=== PATIENT | male | born 2000 | race Caucasian/White ===

== ENCOUNTER 2020-08-25 18:50 | Emergency (ER) | payer OTHER ==
[2020-08-25] MEDS ORDERED: METHYLPREDNISOLONE INJ 125 MG/2 ML SDV IV ONE (19:00)
[2020-08-25] MEDS ORDERED: FAMOTIDINE INJ/PF 20 MG/2 ML SDV IV ONE (19:00)
[2020-08-25] MEDS ORDERED: EPINEPHRINE INJ/PF 1 MG/1 ML AMPULE ONE (19:03)
[2020-08-25] MEDS ORDERED: NORMAL SALINE 1000 ML 1,000 ML IV ONE (19:05)
[2020-08-25] MEDS ORDERED: EPINEPHRINE INJ/PF 1 MG/1 ML AMPULE IM ONE (19:05)
--- NOTE | 2020-08-25 19:09 | ER Document Report ---
ED Medical Screen (RME) - General Chief Complaint: Allergic Reaction Stated Complaint: POSSIBLE ALLERGIC REACTION Time Seen by Provider: 08/25/20 18:58 Notes: HPI: 20-year-old male presenting for allergic reaction. Patient states he was bitten by 50-100 fire ants. Stepped in a nest. No prior history of allergy to fire ants. States this occurred approximately 1 hour ago. No shortness of breath at this time but patient states he did take 75 mg of Benadryl and has worsening swelling PHYSICAL EXAMINATION: Patient covered in hives head to toe. There is periorbital swelling and significant hives across the face. No definitive angioedema phonation is normal no stridor lungs are clear to auscultation without wheezing I have greeted and performed a rapid initial assessment of this patient. A comprehensive ED assessment and evaluation of the patient, analysis of test results and completion of medical decision making process will be conducted by an additional ED providers. - Related Data Allergies/Adverse Reactions: No Known Allergies Allergy (Verified 08/25/20 18:57)
--- NOTE | 2020-08-25 19:36 | ER Document Report ---
ED General - General Chief Complaint: Allergic Reaction Stated Complaint: POSSIBLE ALLERGIC REACTION Time Seen by Provider: 08/25/20 18:58 Notes: Patient is a 20-year-old white male with no significant past medical history presents the emergency department today with a chief complaint of allergic reaction. Patient reports prior to arrival he was walking in the [place] with tennis shoes on when he stepped into a fire ant bed. He states he is guessing about 100 ants were on his foot and lower leg. He states he suffered multiple bites. He states shortly after he began having an outbreak of hives some swelling about the ears and face and swelling around the ankle. He states on the way here they stop by the store he took 75 mg of Benadryl p.o. On intake here they gave epi Solu-Medrol and Pepcid. Patient has a liter of fluids hanging. He reports he is feeling significantly better now. He states he had a slight tingling sensation in the throat during the initial phase of the episode but that quickly resolved. He is never had an anaphylactic reaction. He is never been intubated or hospitalized. He does not carry EpiPen's. No tongue or lips or throat swelling noted. He reports no shortness of breath or chest pain. No loss of consciousness. - Related Data Allergies/Adverse Reactions: No Known Allergies Allergy (Verified 08/25/20 18:57) Past Medical History - Social History Smoking Status: Never Smoker Family History: Reviewed & Not Pertinent Review of Systems - Review of Systems Constitutional: denies: Fever EENT: denies: Nose pain Cardiovascular: denies: Dyspnea Respiratory: denies: Sputum Gastrointestinal: denies: Constipation Genitourinary: denies: Flank pain Male Genitourinary: denies: Testicular pain Musculoskeletal: denies: Muscle pain Skin: denies: Lesions Hematologic/Lymphatic: denies: Blood clots Neurological/Psychological: denies: Gait changes Physical Exam - General General appearance: Appears well, Alert In distress: None - HEENT Head: Other - Some thickened hypertrophied skin about the forehead with no evidence of erythema or urticaria no periorbital edema. No angioedema. Eyes: Normal Conjunctiva: Normal Extraocular movements intact: Yes Eyelashes: Normal Pupils: PERRL Ears: Other - Slight erythema of the bilateral ears there is some hypertrophied skin postauricular with some residual urticaria Mouth/Lips: No: Angioedema Mucous membranes: Normal Pharynx: Other - Patent airway. Handling secretions well. No sublingual or submental swelling. No trismus. Neck: Normal - Respiratory Respiratory status: No respiratory distress Chest status: Nontender Breath sounds: Normal Chest palpation: Normal - Cardiovascular Rhythm: Regular Heart sounds: Normal auscultation - Extremities Ankle: Other - Slight swelling of the medial left ankle with 1 or 2 bite sites identified. No evidence of multiple bites or injury. No swelling of the lower extremity otherwise. No redness no streaking no cellulitis or induration. No obvious hives about the rest of the extremity - Neurological Neuro grossly intact: Yes Cognition: Normal Orientation: AAOx4 - Psychological Associated symptoms: Normal affect, Normal mood - Skin Skin Color: Other - Areas of skin hypertrophy thickening and faint urticaria of residual areas described above otherwise no urticaria noted on exposed skin areas. Course - Re-evaluation Re-evalutation: 08/25/20 19:36 Patient with a rapidly improving allergic reaction. We will continue to monitor for any rebound symptoms. 08/25/20 20:25 Reevaluation at this time. Patient's been in the department just over an hour and a half under my supervision in our. His symptoms rapidly improved upon arrival with the administration of medications that he took and that we gave. During her monitoring he said nothing but to continue to improve. Has had no evidence of worsening or rebound reaction. He states that he feels well and is eager for discharge. Will prescribe a short course of steroids, give a prescription for EpiPen with instructions discussed in detail for when and how to use and he can use Benadryl and Pepcid per our discussion for [id number] label instructions as needed in addition to the above medications. Patient is stable and appropriate for discharge and outpatient follow-up. Counseled him at length regarding the importance of outpatient follow-up and advised that he return here or any ER immediately with any new, persistent or worsening symptoms. He verbalized understood and agreed. Discharge - Discharge Clinical Impression: Allergic reaction Qualifiers: Encounter type: initial encounter Qualified Code(s): T78.40XA - Allergy, unsp ecified, initial encounter Insect bite Qualifiers: Encounter type: initial encounter Site of insect bite: unspecified site Qualified Code(s): W57.XXXA - Bitten or stung by nonvenomous insect and other nonvenomous arthropods, initial encounter Condition: Stable Disposition: HOME, SELF-CARE Instructions: Acute Allergic Reaction ([facility]), Anaphylaxis Kit ([facility]) Additional Instructions: Follow-up with your regular doctor in 2 to 3 days for reevaluation. Return here or any ER immediately with any new, persistent or worsening symptoms. Prescriptions: Prednisone [Deltasone 20 mg Tablet] 40 mg PO DAILY #6 tablet Epinephrine [Epipen 2-Neto] 0.3 mg IM ASDIR PRN #1 packet PRN Reason: Referrals: [facility] [NO LOCAL MD] - Follow up as needed
[2020-08-25 20:40] VITALS: BP 144/74
== END 2020-08-25 20:41 | disposition home or self-care (01) ==
LOC: ER 18:50
DX: T63.421A Toxic effect of venom of ants, accidental (unintentional), initial encounter (principal); L50.9 Urticaria, unspecified; R22.0 Localized swelling, mass and lump, head; M79.89 Other specified soft tissue disorders; Y92.89 Other specified places as the place of occurrence of the external cause
CPT/HCPCS: 99283; 96361; 96374; 96375; J0171; J2930; J7030; S0028